=== PATIENT | female | born 1995 | race African-American/Black ===

== ENCOUNTER 2017-05-19 16:03 | Emergency (ER) | END 2017-05-19 20:24 | disposition home or self-care (01) ==

== ENCOUNTER 2017-07-24 21:26 | Emergency (ER) | END 2017-07-25 04:11 | disposition home or self-care (01) ==

== ENCOUNTER 2018-01-27 17:50 | Emergency (ER) | END 2018-01-27 22:53 | disposition home or self-care (01) ==

== ENCOUNTER 2018-08-18 16:54 | Emergency (ER) | payer MEDICAID ==
[~2018-08-18] VITALS: Ht 167.6 cm; Wt 56.6 kg
[~2018-08-18 16:54] MED LIST: ALBU8.5H8 INH; CETI10CA PO; D-ME473S2 PO; GUAI120S26 PO; IBUP-1542 PO; MED4DP PO; PRED20TA PO
[2018-08-18 16:57] VITALS: Ht 167.6 cm; Wt 56.6 kg
[2018-08-18] MEDS ORDERED: ALBUTEROL 0.5% (NEB) 2.5 MG/0.5 ML AMP INH STA (18:43)
[2018-08-18] MEDS ORDERED: predniSONE 20 MG TAB PO STA (18:43)
[2018-08-18] MEDS ORDERED: PRED20TA PO (18:46)
[2018-08-18] MEDS ORDERED: ALBU8.5H8 INH (18:46)
[2018-08-18] MEDS ORDERED: IBUP-1542 PO (18:46)
[2018-08-18 19:44] VITALS: BP 116/77; PULSE 124; RESP 18
--- NOTE | 2018-08-18 22:31 | ERD ---
ER Documentation Chief Complaint Chief Complaint cough & congestion x3 days, used inhaler today HPI 23-year-old young woman with a history of asthma complains of recent URI symptoms with cough, nasal congestion, sore throat. She denies fevers or chills, no chest pain, no calf or leg swelling, no recent sick contacts or travel. ROS All systems reviewed and are negative except as per history of present illness. Medications Home Meds Active Scripts Ibuprofen* (Motrin*) 600 Mg Tab, 600 MG PO Q8 PRN for PAIN AND/OR INFLAMMATION, #30 TAB Prov:COLUMBA LYNN MD 08/18/18 Albuterol Sulfate* (Proair HFA*) 8.5 Gm Hfa.aer.ad, 2 PUFF INH Q4 PRN for COUGH, #1 INHALER Prov:CLOUMBA LYNN MD 08/18/18 Prednisone* (Prednisone*) 20 Mg Tab, 40 MG PO DAILY for 4 Days, TAB Prov:COLUMBA LYNN MD 08/18/18 Albuterol Sulfate* (Proair HFA*) 8.5 Gm Hfa.aer.ad, 2 PUFF INH Q4, #1 INHALER Prov:MARCO ARTHUR PA-C 01/27/18 Methylprednisolone* (Medrol* DOSE PACK) 4 Mg/Dose-Pack Tab.ds.pk, 4 MG PO . DIRECTED for 5 Days, PACKET Prov:MARCO ARTHUR PA-C 01/27/18 Dextromethorphan Hb-Promethazine Hcl* (Promethazine DM* Syrup) 473 Ml Syrup, 5 ML PO Q6 PRN for COUGH for 5 Days, ML Prov:MARCO ARTHUR PA-C 01/27/18 Cetirizine Hcl* (Zyrtec*) 10 Mg Capsule, 10 MG PO DAILY, #30 TAB.CHEW Prov:SERGIO BREWER [employer] 07/25/17 Cetirizine Hcl* (Zyrtec*) 10 Mg Capsule, 10 MG PO DAILY, #30 TAB.CHEW Prov:SERGIO BREWER [employer] 07/25/17 Zfvinjgrybz-G-Fnqcidhylz Hb* (Guaifenesin* DM Syrup) 120 Ml Syrup, 10 ML PO Q4H PRN for COUGH, #120 ML Prov:SERGIO BREWER NP 07/25/17 Prednisone* (Prednisone*) 20 Mg Tab, 60 MG PO DAILY for 5 Days, TAB Prov:SERGIO BREWER NP 07/25/17 Albuterol Sulfate* (Proair HFA*) 8.5 Gm Hfa.aer.ad, 2 PUFF INH Q4H PRN for WHEEZING AND SOB, #1 INHALER Prov:SERGIO BREWER NP 07/25/17 Ibuprofen* (Motrin*) 600 Mg Tab, 600 MG PO Q8, #15 TAB Prov:CHILO COTTON MD 05/19/17 Allergies Allergies: Coded Allergies: iodine (Verified Allergy, Unknown, 08/18/18) latex (Verified Allergy, Unknown, 08/18/18) PMhx/Soc Asthma History of Surgery: No Anesthesia Reaction: No Hx Neurological Disorder: No Hx Respiratory Disorders: Yes (ASTHMA) Hx Cardiac Disorders: No Hx Psychiatric Problems: Yes (ANXIETY, PTSD, PANIC DISORDER, DEAF) Hx Miscellaneous Medical Probl: No Hx Alcohol Use: No Hx Substance Use: No Hx Tobacco Use: No Smoking Status: Never smoker Physical Exam Vitals Vital Signs Date Temp Pulse Resp B/P (MAP) Pulse Ox O2 O2 Flow FiO2 Time Delivery Rate 08/18/18 97.9 124 18 116/77 99 Room Air 19:44 (90) 08/18/18 98 18 97 21 19:16 08/18/18 100.1 116 20 118/71 98 16:57 (87) Physical Exam GENERAL: Well-developed, well-nourished, well-hydrated, febrile HEENT: Moist mucous membranes, pink conjunctiva, No submandibular induration, and no pharyngeal erythema, no exudates, uvula is midline. Patient does have nasal congestion and rhinorrhea NEURO: Alert and oriented 3, cranial nerves II through XII intact bilaterally, pupils equal round reactive to light, no focal deficits or facial asymmetry, sensation intact distally Strength 5/5 in upper and lower extremities bilaterally CARDIAC: Regular rate and rhythm, no murmurs rubs or gallops LUNGS: Mild wheezing bilaterally, no crackles or stridor ABDOMEN: Soft nontender, no guarding, no rigidity, no rebound, no psoas sign no obturator sign. Normoactive bowel sounds SKIN: Warm and dry to touch, no abrasions, contusions, or hematomas, no lacerations, no ecchymosis, no target lesions, and without ulcers EXTREMITIES: No clubbing cyanosis or edema, calves are bilaterally symmetrical, no Homans sign, no popliteal cord sign. Distal pulses equal and bilateral PSYCH: Normal affect without agitation or irritability Results 24 hrs Current Medications Medications Dose Sig/Marcus Start Time Status Last (Trade) Ordered Route PRN Stop Time Admin Dose Reason Admin Albuterol 5 mg ONCE STAT 08/18/18 DC 08/18/18 (Proventil INH 18:43 08/18/18 19:15 0.5% (Neb)) 18:45 Prednisone 40 mg ONCE STAT 08/18/18 DC 08/18/18 (Prednisone) PO 18:43 08/18/18 18:48 18:45 Procedures/MDM Patient looks well but does have a low-grade fever I suspect viral upper respiratory tract infection. She used NSAIDs prior to arrival and I administered a dose of albuterol 5 mg via nebulizer and prednisone 40 mg p.o. x1 Patient feels much better at this time, and vital signs are normal, symptoms have improved. I did give strict instructions to return to the ED if symptoms continue or worsen, patient will otherwise follow-up with primary care physician. Patient understood instructions and agreed to plan. Disclaimer: Inadvertent spelling and grammatical errors are likely due to EHR/dictation software use and do not reflect on the overall quality of patient care. Also, please note that the electronic time recorded on this note does not necessarily reflect the actual time of the patient encounter. Departure Diagnosis: Primary Impression: Acute URI Additional Impression: Acute asthma Condition: Good Patient Instructions: Uri, Viral W/ Wheezing (Adult) COLUMBA LYNN MD Aug 18, 2018 22:31
== END 2018-08-18 19:46 | disposition home or self-care (01) ==
LOC: FTE 16:54
DX: J06.9 Acute upper respiratory infection, unspecified (principal); J45.901 Unspecified asthma with (acute) exacerbation; Z91.040 Latex allergy status
CPT/HCPCS: 94664; J7512; Z7502; Z7610